=== PATIENT | male | born 1985 | race African-American/Black ===

== ENCOUNTER 2020-10-05 22:30 | Emergency (ER) | payer OTHER ==
[~2020-10-05] VITALS: Ht 172.7 cm; Wt 93.0 kg
[2020-10-06 03:03] VITALS: BP 169/102
== END 2020-10-06 03:03 | disposition home or self-care (01) ==
LOC: ED 22:30
DX: S61.412A Laceration without foreign body of left hand, initial encounter (principal); W26.0XXA Contact with knife, initial encounter; Y93.89 Activity, other specified; Y92.89 Other specified places as the place of occurrence of the external cause; Y99.0 Civilian activity done for income or pay
CPT/HCPCS: 90715; J2001